=== PATIENT | female | born 1975 | race Caucasian/White ===

== ENCOUNTER 2021-12-19 09:49 | Emergency (ER) | payer MEDICAID, SELFPAY ==
--- NOTE | ~2021-12-19 | CT_ITS ---
EXAMINATION: CT ABDOMEN AND PELVIS WITH CONTRAST CLINICAL INFORMATION: Right lower quadrant abdominal pain and tenderness. COMPARISON: None. TECHNIQUE: Multidetector volumetric images were obtained from the superior aspect of the liver through the pubic symphysis following administration 85 mL of Omnipaque 350 intravenous contrast. Sagittal and coronal reformatted images were obtained on the technologist's workstation. Oral contrast: No This CT examination was performed using dose optimization techniques as appropriate, variously including the following: *Automated exposure control *Adjustment of mA and/or kV according to patient size (this includes techniques or standardized protocols for targeted exams where dose is matched to indication/reason for exam; i.e. extremities or head) *Use of iterative reconstruction technique DLP: 691 mGy-cm FINDINGS: LUNG BASES: The visualized lung bases are unremarkable. LIVER, GALLBLADDER, AND BILIARY TREE: The liver is normal in size, shape, and attenuation. Anterosuperior hepatic hypodensity measuring less than 0.5 cm. No additional hepatic parenchymal lesion. No biliary ductal dilatation is present. The gallbladder is unremarkable with no evidence of radiopaque gallstones, gallbladder wall thickening, or obvious pericholecystic inflammatory changes. PANCREAS: Unremarkable. SPLEEN: Unremarkable. ADRENAL GLANDS: Unremarkable. KIDNEYS AND URETERS: The kidneys are normal in size, shape, and attenuation. No hydronephrosis, hydroureter, or calculi seen. Left midpole 1.0 cm simple cyst. Additional subcentimeter bilateral renal hypodensities, likely representing simple cysts. Findings are not clinically significant and no dedicated follow up imaging is recommended. No renal or ureteral stone. No hydronephrosis or hydroureter. No perinephric stranding. BLADDER: Partially distended and unremarkable. GASTROINTESTINAL TRACT: No bowel wall thickening or inflammatory change. No small or large bowel obstruction. Unremarkable appendix. PERITONEAL CAVITY: Trace simple pelvic free fluid. No intra-abdominal free air. ABDOMINAL WALL: No significant hernia is appreciated. LYMPH NODES: No significant lymphadenopathy. VASCULAR: Unremarkable. PELVIC VISCERA: There is a large, peripherally enhancing cystic structure associated with the right adnexa measuring up to 5.5 x 6.4 x 7.7 cm. Trace right adnexal and pelvic free fluid. Nabothian cysts. Unremarkable left adnexa. OSSEOUS STRUCTURES: Unremarkable. CT/CT abdomen pelvis w IV con IMPRESSION: 1. Peripherally enhancing right adnexal cyst measuring up to 7.7 cm. Trace right adnexal and pelvic free fluid. CIVIL LAWYER ultrasound could help further evaluate if clinically indicated. 2. No bowel wall thickening or inflammatory change. No small or large bowel obstruction. Unremarkable appendix. Fleischner guidelines were followed.
--- NOTE | ~2021-12-19 | US_ITS ---
EXAMINATION: US PELVIS CLINICAL INFORMATION: Severe right lower quadrant pain COMPARISON: CT scan of the abdomen and pelvis earlier today TECHNIQUE: Ultrasound of the pelvis is performed using both transabdominal and transvaginal transducers along with Doppler. Transvaginal imaging is performed due to inadequate visualization transabdominally. FINDINGS: Uterus: The uterus is retroverted and measures 12.8 x 4.2 x 7.0 cm. The double wall endometrial thickness is 0.2 mm. The uterus is smooth in contour and has normal myometrial echogenicity. No visible fibroid. Adnexa: Both ovaries are visualized. There is normal color flow to the adnexa. There is no ovarian torsion. Right ovary measures 2.6 x 2.1 x 2.1 cm. Left ovary measures 3.1 x 2.1 x 2.7 cm. Of note, adjacent and apparently separate from the right ovary is a large complex predominantly cystic adnexal mass measuring 8.5 x 5.1 x 7.1 cm that has multiple thin internal septations. This correlates with the large mass seen on the CT scan earlier today with a thickened enhancing rim. Moderate free fluid is present in the cul-de-sac. US/US pelvic and transvaginal IMPRESSION: This exam confirms that the large right lower quadrant mass seen on the prior CT scan appears to be separate (or at least exophytic) from the right ovary. Recommendations remain the same with INCLUSION SPECIAL EDUCATION TEACHER/surgical consult.
--- NOTE | ~2021-12-19 | US_ITS ---
EXAMINATION: US PELVIS CLINICAL INFORMATION: Severe right lower quadrant pain COMPARISON: CT scan of the abdomen and pelvis earlier today TECHNIQUE: Ultrasound of the pelvis is performed using both transabdominal and transvaginal transducers along with Doppler. Transvaginal imaging is performed due to inadequate visualization transabdominally. FINDINGS: Uterus: The uterus is retroverted and measures 12.8 x 4.2 x 7.0 cm. The double wall endometrial thickness is 0.2 mm. The uterus is smooth in contour and has normal myometrial echogenicity. No visible fibroid. Adnexa: Both ovaries are visualized. There is normal color flow to the adnexa. There is no ovarian torsion. Right ovary measures 2.6 x 2.1 x 2.1 cm. Left ovary measures 3.1 x 2.1 x 2.7 cm. Of note, adjacent and apparently separate from the right ovary is a large complex predominantly cystic adnexal mass measuring 8.5 x 5.1 x 7.1 cm that has multiple thin internal septations. This correlates with the large mass seen on the CT scan earlier today with a thickened enhancing rim. Moderate free fluid is present in the cul-de-sac. US/US pelvic ovarian doppler IMPRESSION: This exam confirms that the large right lower quadrant mass seen on the prior CT scan appears to be separate (or at least exophytic) from the right ovary. Recommendations remain the same with HEALTH COACH/surgical consult.
[2021-12-19 09:54] VITALS: BP 157/93; PULSE 94; RESP 18; TEMP 36.6; O2SAT 98; BMI 30.2
[2021-12-19 11:19] LABS: MANUAL DIFF FLAG NO
[2021-12-19 11:21] LABS: Basophils Absolute Auto 0.1 X10*3/uL (0.0-0.2); Basophils Percent Auto 0.5 % (0-2); Eosinophils Absolute Auto 0.1 X10*3/uL (0.0-0.4); Eosinophils Percent Auto 0.9 % (0-4); Hematocrit 39.2 % (37.0-47.0); Hemoglobin 13.5 g/dl (12.0-16.0); Imm Gran Abs Auto 0.07 X10*3/uL (0.00-0.03); Imm Gran Pct Auto 0.5 % (0.0-0.4); Lymphocytes Absolute Auto 1.6 X10*3/uL (1.2-4.9); Lymphocytes Percent Auto 12.4 % (20-40); Mean Corpuscular HGB Conc 34.4 g/dl (31.0-35.0); Mean Corpuscular Hemoglobin 28.7 pg (27.0-33.0); Mean Corpuscular Volume 83.4 fL (80.0-98.0); Mean Platelet Volume 9.2 fL (9.4-12.3); Monocytes Absolute Auto 0.7 X10*3/uL (0.1-1.2); Monocytes Percent Auto 5.1 % (2-11); Neutrophils Absolute Auto 10.5 x10*3/uL (2.0-8.3); Neutrophils Percent Auto 80.6 % (45-73); Platelet Count 357 X10*3/uL (160-400); Red Cell Distribution Width 11.9 % (11.0-16.0)
[2021-12-19 11:23] LABS: Appearance Urine Cloudy; Color Urine Yellow; Glucose Urine UA Negative (Negative); Leukocyte Esterase Urine Negative (Negative); Nitrite Urine Negative (Negative); PH >= 9.0 (5.0-9.0); Specific Gravity - Urine 1.025 (1.005-1.025); Urine Blood Negative (Negative); Urine Ketones 40 mg/dL (Negative); Urine Protein 100 (2+) mg/dL (Neg-Trace)
[2021-12-19 11:25] LABS: UPreg QC Valid YES; Urine Pregnancy NEGATIVE (NEGATIVE)
[2021-12-19 11:28] LABS: Bacteria Urine None Seen (None Seen); Hyaline Casts Urine 0-2 /LPF (0-2); Squamous Epithelial Cell Urine 0-2 /HPF (0-2); WBC Urine 0-5 /HPF (0-5)
[2021-12-19 11:48] LABS: Anion Gap 16 (12-20); Blood Urea Nitrogen 13 mg/dL (9-16); Calcium 9.2 mg/dL (8.4-10.2); Carbon Dioxide 20 mmol/L (22-29); Chloride 104 mmol/L (96-108); Estimated Glomerular Filt Rate > 60; Glucose Random 143 mg/dL (60-115); Potassium 3.6 mmol/L (3.3-5.1); Sodium 136 mmol/L (135-145)
--- NOTE | 2021-12-19 17:26 | ED_ITS ---
HPI - Female Genitourinary General Chief complaint: Abdominal Pain Stated complaint: lower back pain/side abd pain Time Seen by Provider: 12/19/21 17:26 Source: patient Mode of arrival: ambulatory Limitations: no limitations History of Present Illness HPI Narrative: 45-year-old female presenting with severe 10/10 right lower abdominal pain radiating to her right flank. Patient reports she was awoken from sleep at 04:00 this morning with the pain. Reports nausea and 2 episodes of vomiting this morning. Patient denies eating anything today. Reports being her usual state of health yesterday. Denies fever, cough, shortness of breath, chest pain, diarrhea, BRBPR, burning with urination, blood in urine. Patient has had liposuction of her abdomen, denies any other abdominal surgery. Patient is menopausal. MD elicited complaint: other (Right-sided abdominal pain) Pertinent past history: other Onset (ago): hour(s) Location of symptoms: RLQ and flank (Right) Severity: severe Female Urogenital Radiation: R Flank Severity scale (1-10): 10 Quality of pain: sharp Consistency: constant Exacerbating factors: movement Associated symptoms: loss of appetite, nausea and vomiting Related Data Previous Rx's Medication Instructions Recorded hydrocodone 5 mg-acetaminophen 325 1 tab PO Q6H PRN severe pain 12/19/21 mg tablet (scale score 7-10) #10 tabs ibuprofen 800 mg tablet 800 mg PO Q8H PRN pain #20 tabs 12/19/21 Allergies Allergy/AdvReac Type Severity Reaction Status Date / Time Unable to Assess Allergy Unverified 12/19/21 17:35 Review of Systems Review of Systems: Constitutional: No Fever, No Chills ENT/Mouth: No sore throat, No Rhinorrhea, No Swallowing Difficulty Eyes: No Eye Pain, No Swelling, No Redness Cardiovascular: No Chest Pain, No SOB, No Orthopnea, No Edema Respiratory: No Cough, No Sputum, No Wheezing, No dyspnea Gastrointestinal: + Nausea, + Vomiting, No Diarrhea, + abdominal Pain, No Hematochezia, No Melena Genitourinary: No Dysuria, No Urinary Frequency, No Hematuria Musculoskeletal: No joint pain, No Myalgias Skin: No Skin Lesions, No rash Neuro: No Weakness, No Numbness, No Dizziness, No Headache Psych: No Anxiety/Panic, No Depression Heme/Lymph: No Bruising, No Lymphadenopathy Endocrine: No Polyuria, No Polydipsia PMFSH Social History Social History Patient Tobacco Use Status: Never used Tobacco Use of substances other than those prescribed or required for medical reasons: No Advance Directives: No Advance Directives Information Provided: No Physical Exam Vital Signs: Vital Signs: Last Vital Signs Temp 99.1 F 12/19/21 20:00 Pulse 90 12/19/21 20:00 Resp 16 12/19/21 20:00 BP 135/69 12/19/21 20:00 Pulse Ox 98 12/19/21 20:00 O2 Del Method 12/19/21 20:00 BMI result Body Mass Index 30.2 Appearance: Alert. Oriented X3. No acute distress. Eyes: Pupils equal, round and reactive to light. ENT: Pharynx normal. Neck: Normal inspection. Neck supple. CVS: Normal heart rate and rhythm. Pulses normal. Respiratory: No respiratory distress. Breath sounds normal. Abdomen: Soft with marked RLQ tenderness with guarding, no rebound, no other areas of tenderness. unable to appreciate palpable mass due to pain and inability to tolerate deep palpation. normal BS x4. pelvic deferred. Skin: Skin warm and dry. Normal skin color. Normal skin turgor. No rashes. Extremities: No lower extremity edema. Neuro: Oriented X 3. No motor deficit. No sensory deficit. Course Course Course Narrative: 45-year-old female presenting with severe 10/10 right lower abdominal pain radiating to her right flank. On exam, patient is very uncomfortable holding her right side. Tenderness to palpation in right lower quadrant with guarding. Concern for appendicitis vs ovarian cyst vs ovarian torsion, lower concern for nephrolithiasis, pyelonephritis. CT abdomen pelvis with contrast pending Labs remarkable for mild leukocytosis of 13.0 Reevaluation(s) Reevaluation #1: CT scan showing a 7.7 cm right adnexal cyst. There is trace right adnexal and pelvic free fluid. Will get pelvic ultrasound to rule out or vein torsion. She is much more comfortable after the morphine and Zofran. Patient updated on plan of care. Reevaluation #2: Pelvic ultrasound is showing at 8.5 x 5.1 x 7.1 predominantly cystic adnexal mass with multiple thin internal septations. There is no torsion with normal color flow to the adnexa. Her pain is better controlled after dose of morphine and Toradol. Will plan to send her home with pain control and outpatient follow-up with Dr. Conn or her OBGYN. MDM - Female Genitourinary Lab Data Result diagrams: 12/19/21 11:12 12/19/21 11:12 Labs: Lab Results 12/19/21 12/19/21 12/19/21 Range/Units 11:12 11:12 11:12 WBC 13.0 H (4.8-10.8) X10*3/uL RBC 4.70 (4.20-5.50) X10*6/uL Hgb 13.5 (12.0-16.0) g/dl Hct 39.2 (37.0-47.0) % MCV 83.4 (80.0-98.0) fL MCH 28.7 (27.0-33.0) pg MCHC 34.4 (31.0-35.0) g/dl RDW 11.9 (11.0-16.0) % Plt Count 357 (160-400) X10*3/uL MPV 9.2 L (9.4-12.3) fL Immature Gran % (Auto) 0.5 H (0.0-0.4) % Neut % (Auto) 80.6 H (45-73) % Lymph % (Auto) 12.4 L (20-40) % [place] % (Auto) 5.1 (2-11) % Eos % (Auto) 0.9 (0-4) % Baso % (Auto) 0.5 (0-2) % Lymph # (Auto) 1.6 (1.2-4.9) X10*3/uL [place] # (Auto) 0.7 (0.1-1.2) X10*3/uL Eos # (Auto) 0.1 (0.0-0.4) X10*3/uL Baso # (Auto) 0.1 (0.0-0.2) X10*3/uL Abs Immat Gran (auto) 0.07 H (0.00-0.03) X10*3/uL Absolute Neuts (auto) 10.5 H (2.0-8.3) x10*3/uL Absolute Nucleated RBC 0.000 (0.0-0.012) X10*3/uL Nucleated RBC % (auto) 0.0 (0.0-0.2) /100WBC Sodium 136 (135-145) mmol/L Potassium 3.6 (3.3-5.1) mmol/L Chloride 104 (96-108) mmol/L Carbon Dioxide 20 L (22-29) mmol/L Anion Gap 16 (12-20) BUN 13 (9-16) mg/dL Creatinine 0.64 (0.5-1.4) mg/dL Estim Creat Clear Calc 104.0 Estimated GFR > 60 Random Glucose 143 H (60-115) mg/dL Calcium 9.2 (8.4-10.2) mg/dL Urine Color Yellow Urine Appearance Cloudy Urine pH >= 9.0 (5.0-9.0) Ur Specific [place] 1.025 (1.005-1.025) Urine Protein 100 (2+) H (Neg-Trace) mg/dL Urine Glucose (UA) Negative (Negative) mg/dL Urine Ketones 40 (Negative) mg/dL Urine Blood Negative (Negative) Urine Nitrite Negative (Negative) Ur Leukocyte Esterase Negative (Negative) Urine RBC 3-5 H (0-2) /HPF Urine WBC 0-5 (0-5) /HPF Ur Squamous Epith Cells 0-2 (0-2) /HPF Urine Bacteria None Seen (None Seen) Hyaline Casts 0-2 (0-2) /LPF Urine Test (NEGATIVE) 12/19/21 Range/Units 11:12 WBC (4.8-10.8) X10*3/uL RBC (4.20-5.50) X10*6/uL Hgb (12.0-16.0) g/dl Hct (37.0-47.0) % MCV (80.0-98.0) fL MCH (27.0-33.0) pg MCHC (31.0-35.0) g/dl RDW (11.0-16.0) % Plt Count (160-400) X10*3/uL MPV (9.4-12.3) fL Immature Gran % (Auto) (0.0-0.4) % Neut % (Auto) (45-73) % Lymph % (Auto) (20-40) % [place] % (Auto) (2-11) % Eos % (Auto) (0-4) % Baso % (Auto) (0-2) % Lymph # (Auto) (1.2-4.9) X10*3/uL [place] # (Auto) (0.1-1.2) X10*3/uL Eos # (Auto) (0.0-0.4) X10*3/uL Baso # (Auto) (0.0-0.2) X10*3/uL Abs Immat Gran (auto) (0.00-0.03) X10*3/uL Absolute Neuts (auto) (2.0-8.3) x10*3/uL Absolute Nucleated RBC (0.0-0.012) X10*3/uL Nucleated RBC % (auto) (0.0-0.2) /100WBC Sodium (135-145) mmol/L Potassium (3.3-5.1) mmol/L Chloride (96-108) mmol/L Carbon Dioxide (22-29) mmol/L Anion Gap (12-20) BUN (9-16) mg/dL Creatinine (0.5-1.4) mg/dL Estim Creat Clear Calc Estimated GFR Random Glucose (60-115) mg/dL Calcium (8.4-10.2) mg/dL Urine Color Urine Appearance Urine pH (5.0-9.0) Ur Specific [place] (1.005-1.025) Urine Protein (Neg-Trace) mg/dL Urine Glucose (UA) (Negative) mg/dL Urine Ketones (Negative) mg/dL Urine Blood (Negative) Urine Nitrite (Negative) Ur Leukocyte Esterase (Negative) Urine RBC (0-2) /HPF Urine WBC (0-5) /HPF Ur Squamous Epith Cells (0-2) /HPF Urine Bacteria (None Seen) Hyaline Casts (0-2) /LPF Urine Test NEGATIVE (NEGATIVE) Discharge Plan Discharge Clinical Impression: Adnexal mass Patient Disposition: Home, Self-Care Instructions: Ovarian Cyst (ED), Ovarian Cyst Removal (DC) Additional Instructions: Your CT scan and ultrasound today showed a large 8cm cyst in the area that you are having pain. Recommend following up with the OBGYN listed below. Call his office on Tuesday to arrange an outpatient appointment. Take the prescribed narcotic medication as needed for severe pain. Do not drive after taking this medication. He can make you drowsy. Recommend taking the prescribed ibuprofen every 6-8 hours as needed for [id number] pain. Take with food. If you develop new or worsening symptoms call 911 or come back to the ER for f urther evaluation. Prescriptions: New ibuprofen 800 mg tablet 800 mg PO Q8H PRN (Reason: pain) Qty: 20 0RF hydrocodone-acetaminophen 5-325 mg tablet 1 tab PO Q6H PRN (Reason: severe pain (scale score 7-10)) Qty: 10 0RF Rx Instructions: Partial Fill upon patient request. Referrals: Davonte Conn MD [Physician] -
[2021-12-19] MEDS: iohexoL 350 MG/ML 100 ML INFUS..BTL IV (17:59)
--- NOTE | 2021-12-19 17:59 | PC.NURSE ---
Patient in CT scan. Had to wait to admin narc
[2021-12-19] MEDS: Morphine Sulfate 4 MG/ML CARTRIDGE IVPUSH (18:00)
[2021-12-19] MEDS: ondansetron HCL 4 MG/2 ML VIAL IVPUSH (18:02)
[2021-12-19] MEDS: 0.9 % Sodium Chloride 1,000 ML 999 ML IVCONT (18:02)
[2021-12-19 18:03] VITALS: BP 166/82; PULSE 88; RESP 20; O2SAT 100
[2021-12-19] MEDS: Ketorolac Tromethamine 30 MG/ML VIAL IVPUSH (19:48)
[2021-12-19 20:00] VITALS: BP 135/69; PULSE 90; RESP 16; TEMP 37.3; O2SAT 98
[2021-12-19 21:47] VITALS: BP 133/65; PULSE 83; RESP 16; TEMP 37.2; O2SAT 98
== END 2021-12-19 22:10 | disposition home or self-care (01) ==
PROVIDERS: Emergency Provider Internal Medicine
DX: R19.09 Other intra-abdominal and pelvic swelling, mass and lump (principal); R10.30 Lower abdominal pain, unspecified
CPT/HCPCS: 36415; 74177; 76830; 76856; 80048; 81001; 81025; 85025; 93975; 96361; 96374; 96375; 99284; J1885; J2270; J2405; Q9967

== ENCOUNTER → 2022-04-14 14:32 | Outpatient (REF) | payer MEDICAID, SELFPAY ==
--- NOTE | ~2022-04-14 | XR_ITS ---
EXAMINATION: XR CHEST CLINICAL INFORMATION: Intermittent chest pain COMPARISON: None TECHNIQUE: 2 views of the chest were obtained. FINDINGS: No significant abnormality is noted involving the heart, lungs, mediastinum, bony thorax or soft tissues. XR/XR chest 2V IMPRESSION: Unremarkable examination.
== END ==
LOC: HO.CARD 14:32
PROVIDERS: PCP Student in an Organized Health Care Education/Training Program; Visit Provider Family Medicine
DX: R07.9 Chest pain, unspecified (principal)
CPT/HCPCS: 71046

== ENCOUNTER → 2022-12-28 10:51 | Outpatient (REF) | payer MEDICAID, SELFPAY ==
--- NOTE | 2022-12-28 10:56 | CA_ITS ---
Acquisition Time: 2022-12-28 11:03:56 Total Exercise Time: 00:05:31 Test Indications: CHEST PAIN Medications: Protocol: AUDREY Max HR: 153 BPM 88% of Pred: 172 BPM Max BP: 170/094 mmHG Max Work Load: 7.0 METS Exercise stress test exercise 5 in 31 sec of Audrey protocol achieving 88% MPHR with 8/10 left sided chest pain, with isolated PVC and venticular cuplet, with normotensive response to exercise, resting diastolic high, without EKG changes. Chest pain resolved with rest. Test reviewed with Dr. Quezada. Message to PCP Referred By: Diamond Childress Overread By: Maria Elena Romo
== END ==
LOC: HO.CARD 10:51
PROVIDERS: PCP Student in an Organized Health Care Education/Training Program; Visit Provider Family Medicine
DX: R07.9 Chest pain, unspecified (principal)
CPT/HCPCS: 93017

== ENCOUNTER → 2022-12-28 10:56 | Outpatient (BNV) | payer MEDICAID, SELFPAY | PROVIDERS: PCP Student in an Organized Health Care Education/Training Program; Visit Provider Nurse Practitioner | DX: R07.89 Other chest pain (principal) | CPT/HCPCS: 93016; 93018 ==

== ENCOUNTER 2022-12-29 09:28 | Outpatient (REF) | payer MEDICAID, SELFPAY ==
--- NOTE | ~2022-12-29 | MM_ITS ---
EXAMINATION: MM DIAGNOSTIC DIGITAL BREAST TOMOSYNTHESIS, BILATERAL US BREAST LIMITED, LEFT MAMMOGRAPHY: CLINICAL INFORMATION: 39-year-old female, baseline mammography. Complaining of global left breast pain, most significant in the upper quadrant. Patient states x9 months. COMPARISON: Mammography: None. Baseline exam. TECHNIQUE: Digital breast tomosynthesis is performed in both the craniocaudal and mediolateral oblique views along with computer-aided detection (CAD). Synthesized 2D images are generated from the tomosynthesis. In addition, 3-D spot compression left cc views x2, and left MLO view were also performed. FINDINGS: The breasts are heterogeneously dense, which may obscure small masses (ACR BI-RADS breast composition Category c). A focal asymmetry in the upper outer left breast, posterior one third, dissipates on spot compression views and is consistent with superimposition artifact of normal overlapping fibroglandular tissues. Otherwise, there are no suspicious masses, suspicious grouped calcifications, or areas of architectural distortion in either breast. No mammographic abnormality is evident to explain the patient's global and superior left breast pain. ULTRASOUND: CLINICAL INFORMATION: Global left breast pain, significant upper quadrant x9 months. Baseline mammography. COMPARISON: No prior ultrasound. TECHNIQUE: Targeted sonographic evaluation was performed using a high frequency linear transducer. The left breast was scanned in the 10:00 through the 2:00 axes. Selected archived documentation. FINDINGS: LEFT BREAST: There is a mixture of fatty and fibroglandular tissue. No suspicious mass is seen. There is no pathologic acoustic shadowing. There are no cystic abnormalities. No ultrasonographic correlate to the complaint of left breast pain. MM/MM tomosynthesis diagnostic BI IMPRESSION: There are no findings suspicious for malignancy in either breast. There is no mammographic or sonographic correlate to explain left breast pain, neither globally or superiorly. Recommend clinical management of these symptoms. Otherwise, advise returning to routine mammographic screening. OVERALL ASSESSMENT: Mammography: BI-RADS 2 - Benign Findings Ultrasound: BI-RADS 2 - Benign Findings RECOMMENDATION: 1. Patient should be managed based on the clinical impression. 2. Otherwise, routine annual screening mammography. Results were provided to the patient at time of visit by the technologist. This patient's information was entered into a reminder system with a target due date for their next mammogram.
== END 2022-12-29 09:29 | disposition home or self-care (01) ==
LOC: HO.MAMMO 09:28
PROVIDERS: PCP Family Medicine; Visit Provider Family Medicine
DX: N64.4 Mastodynia (principal)
CPT/HCPCS: 76642; 77062; 77066

== ENCOUNTER → 2022-12-29 09:30 | Outpatient (BNV) | payer MEDICAID, SELFPAY | PROVIDERS: PCP Family Medicine; Visit Provider Radiology Diagnostic Radiology | DX: N64.4 Mastodynia (principal) | CPT/HCPCS: 76642; 77062; 77066 ==

== ENCOUNTER 2023-05-04 16:04 | Outpatient (REF) | payer MEDICAID, SELFPAY ==
[2023-05-04 18:55] LABS: Influenza A PCR NEGATIVE (Negative); Influenza B PCR NEGATIVE (Negative); Resp Syncy Virus RNA Qual PCR NEGATIVE (Negative); SARS COV2 PCR INHOUSE NEGATIVE (Negative)
== END 2023-05-04 16:05 | disposition home or self-care (01) ==
LOC: HO.CHCLNP 16:04
PROVIDERS: Visit Provider Family Medicine
DX: R05.9 Cough, unspecified (principal); Z11.52 Encounter for screening for COVID-19
CPT/HCPCS: 0241U

== ENCOUNTER 2024-04-25 09:00 | Outpatient (REF) | payer MEDICAID, SELFPAY ==
[2024-04-25 14:27] LABS: MANUAL DIFF FLAG NO
[2024-04-25 14:32] LABS: Basophils Percent Auto 0.5 % (0-2); Eosinophils Absolute Auto 0.2 X10*3/uL (0.0-0.4); Eosinophils Percent Auto 2.8 % (0-4); Hemoglobin 13.1 g/dl (12.0-16.0); Imm Gran Abs Auto 0.02 X10*3/uL (0.00-0.03); Imm Gran Pct Auto 0.3 % (0.0-0.4); Lymphocytes Absolute Auto 2.1 X10*3/uL (1.2-4.9); Lymphocytes Percent Auto 26.9 % (20-40); Mean Corpuscular HGB Conc 33.6 g/dl (31.0-35.0); Mean Corpuscular Hemoglobin 29.4 pg (27.0-33.0); Mean Corpuscular Volume 87.6 fL (80.0-98.0); Monocytes Absolute Auto 0.7 X10*3/uL (0.1-1.2); Monocytes Percent Auto 8.3 % (2-11); Neutrophils Absolute Auto 4.9 x10*3/uL (2.0-8.3); Neutrophils Percent Auto 61.2 % (45-73); Platelet Count 293 X10*3/uL (160-400); Red Blood Count 4.45 X10*6/uL (4.20-5.50); Red Cell Distribution Width 12.2 % (11.0-16.0); White Blood Count 7.9 X10*3/uL (4.8-10.8)
[2024-04-25 14:50] LABS: Alanine Aminotransferase 22 U/L (0-31); Albumin Level 3.8 g/dL (3.5-5.0); Alkaline Phosphatase 91 U/L (39-117); Anion Gap 7 (12-20); Aspartate Amino Transferase 28 U/L (5-31); Bilirubin Total 0.4 mg/dL (0.0-1.0); Blood Urea Nitrogen 15 mg/dL (9-16); Calcium 8.4 mg/dL (8.4-10.2); Carbon Dioxide 25 mmol/L (22-29); Chloride 110 mmol/L (96-108); Cholesterol 154 mg/dL (<200); Estimated Glomerular Filt Rate > 60; Glucose Random 102 mg/dL (60-115); HDL Cholesterol 35 mg/dL (>40); Iron 117 mcg/dL (30-160); LDL Cholesterol Calculated 88 mg/dL (<100); Percent Iron Saturation 39 % (15-50); Potassium 3.6 mmol/L (3.3-5.1); Sodium 138 mmol/L (135-145); Total Iron Binding Capacity 297 mcg/dL (228-428); Total Protein 7.1 g/dL (6.5-8.0); Triglycerides 156 mg/dL (<150); Unsaturated Iron Binding 180 ug/dL
[2024-04-25 15:10] LABS: Ferritin 46 ng/mL (10-250); TSH reflex Free T4 3.58 uIU/mL (0.32-4.0)
[2024-04-25 15:14] LABS: Folate 7.2 ng/mL (> or = 4.0); Vitamin B12 469 pg/mL (200-900)
== END 2024-04-25 09:01 | disposition home or self-care (01) ==
LOC: HO.CHCLDS 09:00
PROVIDERS: Visit Provider Family Medicine
DX: I10 Essential (primary) hypertension (principal); L60.9 Nail disorder, unspecified
CPT/HCPCS: 36415; 80053; 80061; 82607; 82728; 82746; 83540; 84443; 85025

== ENCOUNTER 2024-07-05 08:58 | Outpatient (REF) | payer MEDICAID, SELFPAY ==
[2024-07-05 14:19] LABS: Hematocrit 29.7 % (37.0-47.0); Hemoglobin 9.6 g/dl (12.0-16.0); Mean Corpuscular HGB Conc 32.3 g/dl (31.0-35.0); Mean Corpuscular Hemoglobin 26.3 pg (27.0-33.0); Mean Corpuscular Volume 81.4 fL (80.0-98.0); Mean Platelet Volume 10.1 fL (9.4-12.3); Platelet Count 282 X10*3/uL (160-400); Red Blood Count 3.65 X10*6/uL (4.20-5.50); Red Cell Distribution Width 12.8 % (11.0-16.0); White Blood Count 7.1 X10*3/uL (4.8-10.8)
[2024-07-05 14:21] LABS: Anion Gap 10 (12-20); Blood Urea Nitrogen 19 mg/dL (9-16); Carbon Dioxide 23 mmol/L (22-29); Chloride 111 mmol/L (96-108); Estimated Glomerular Filt Rate > 60; Glucose Random 100 mg/dL (60-115); Potassium 3.7 mmol/L (3.3-5.1); Sodium 140 mmol/L (135-145)
[2024-07-05 14:27] LABS: B Type Natriuretic Peptide 55 pg/mL (<100)
== END 2024-07-05 08:59 | disposition home or self-care (01) ==
LOC: HO.CHCLDS 08:58
PROVIDERS: PCP Family Medicine; Visit Provider Internal Medicine Cardiovascular Disease
DX: R07.89 Other chest pain (principal); R06.02 Shortness of breath
CPT/HCPCS: 36415; 80048; 83880; 85027

== ENCOUNTER 2024-12-27 09:56 | Outpatient (REF) | payer MEDICAID, SELFPAY ==
--- OUTSIDE RECORDS SUMMARY | 2024-12-27 09:00 | XMS_ITS | Encounter Summary ---
Author Organization [employer] Address [address] [place] [address] Care Team Providers Care Supply Crib Attendant Name Role Phone Diamond Childress MD Primary Care Provider [phone] Reason for Visit * Reason Comments Dental Pain Encounter Details Date Type Department Care Team ([facility] st Contact Info) Description 12/27/2024 9:00 AM EDT Office Visit [facility] [address] [place] [address] Jesus Childress DDS [address] [place] [address] Social History Tobacco Use Types Packs/Day Years Used Date Smoking Tobacco: Never Passive Smoke Exposure: Never Smokeless Tobacco: Never Alcohol Use Standard Drinks/Week Comments Never 0 (1 standard drink = 0.6 oz pur e alcohol) Depression Answer Date Recorded Patient Health Questionnaire-9 Score 16 04/23/2024 Patient Health Questionnaire-9 Score 16 04/23/2024 Last PHQ-9: Questionnaire Data Not on file 0 04/23/2024 Housing Stability Answer Date Recorded What is your housing situation today? I have rupesh hall 08/29/[address] you li ve. Do you have problems with any of the following? None of the above 08/29/2024 Food Insecurity Answer Date Recorded Within the past 12 months, y ou worried that your food would run out before you got money to buy more: Never True 08/29/2024 Within the past 12 months,th e food you bought just didn't last and you didn't have enough money to get more: Never True Transportation Answer Date Recorded In the past 12 months, has l ack of transportation kept you from medical appts, meetings, work or from getting things needed for daily living? No 08/29/2024 Utilities Answer Date Recorded In the past 12 months, has t he electric, gas, oil or water company threatened to shut off services in your home? Yes 08/29/2024 Depression Answer Date Recorded Patient Health Questionnaire-2 Score 6 04/23/2024 Internet Access Answer Date Recorded Internet Access Q1 Yes 08/29/2024 Internet Access Q2 Not on file 08/29/2024 Comments Unknown Sex and Gender Information Value Date Recorded Sex Assigned at Female 02/08/2022 10:17 AM EDT Legal Sex Female 10:17 AM EDT Gender Identity Female 02/08/2022 10:17 AM EDT Sexual Orientation Straight 02/08/2022 10 :17 AM EDT documented as of this encounter Progress Notes * Jesus Childress DDS - 12/27/2024 9:00 AM EDT Dental procedures in this visit D0140 - LIMITED ORAL EVALUATION - PROBLEM FOCUSED (Completed) Service provider: Jesus Cihldress DDS Billing provider: Arie Patel DMD D0330 - PANORAMIC RADIOGRAPHIC IMAGE (Completed) Service provider: Jesus Childress DDS Billing provider: Arie Patel DMD D0220 - INTRAORAL - PERIAPICAL FIRST RADIOGRAPHIC IMAGE 13 (Completed) Service provider: Jesus Childress DDS Billing provider: Arie Patel DMD D0230 - INTRAORAL - PERIAPICAL EACH ADDITIONAL RADIOGRAPHIC IMAGE 18 (Completed) Service provider: Jesus Childress DDS Billing provider: Arie Patel DMD Patient ID: Kiko Grande is a 49 y.o. female. Time Out: Date: 12/27/2024 Location: [facility] Tooth: UR, LR, UL, and LL Procedure: Exam Verified the above with patient, freezer assistant, and provider. Confirmed via patient's chart, intraorally and by radiographs. Tying Machine Operator: Yes. Language: Surinamese and Upper Sorbian. Tying Machine Operator's Name: Jesus Childress DDS 49 y.o. y/o female presents for limited exam with Dr. Jesus Childress DDS Medical history: Reviewed in EHR Vitals: There were no vitals taken for this visit. Allergies: Reviewed in EHR Medications: Reviewed in EHR Radiographs taken: Yes CHIEF COMPLAINT: I have pain on the right and left sides in the back area Discussion: Subjective: A 49 year old female patient presents with posterior bilateral pain symptoms. She claims that her pain initiated 3 weeks ago. Also, it is not spontaneous. Instead, it occurs upon mastication. She is unable to pinpoint it to a specific tooth. Patient describes non-specific referred pain. Clinical Exam/Tests: Thus, individualized testing of teeth is performed. - Negative Palpation of all teeth. - Painful response upon percussion of tooth #13. - Discomfort is observed upon percussion of tooth #5 - Tooth #13 displays an MOD amalgam filling with a small chip on the mesial aspect. - Towards the end, she remembers that tooth #18 has given her either pain or discomfort symptoms. Radiographic: Deep Composite Filling in proximal contact with the pulp chamber #18 Tooth #13: no periapical radiolucencies or obvious signs of decay Diagnosis/Treatment: Replace #13 MOD judaism NV: Yazdanism #13 Provider: Dr. Jesus Childress DDS Dental Ground Products Director: Brent Jacob Attending: Dr. Patel documented in this encounter Plan of Treatment Upcoming Encounters Date Type Department Care Team (Late st Contact Info) Description 03/22/2025 9:00 AM EST Office Visit [facility] [address] [place] [address] Jesus Childress DDS [address] [place] [address] 03/25/2025 3:00 PM EST Office Visit [facility] [address] [place] [address] Shanice Arevalo Scheduled Orders Name Type Priority Associated Diagnoses Orde r Schedule 13 MOD 13 MOD RESIN-BASED COMPOSITE - 3 SURF, POSTERIOR Dental Routine 1 Occurrences starting 12/27/2024 documented as of this encounter Procedures Procedure Name Priority Date/Time Associated Diagnosis Comments PANORAMIC RADIOGRAPHIC IMAGE Routine 12/27/2024 9:00 AM EDT LIMITED ORAL EVALUATION - PROBLEM FOCUSED Routine 12/27/2024 9:00 AM EDT 13 INTRAORAL - PERIAPICAL FIRST RADIOGRAPHIC IMAGE Routine 12/27/2024 9:00 AM EDT 18 INTRAORAL - PERIAPICAL EACH ADDITIONAL RADIOGRAPHIC IMAGE Routine 12/27/2024 9:00 AM EDT documented in this encounter Visit Diagnoses Not on filedocumented in this encounter Additional Health Concerns Assessment Noted Time PHQ-9 Depression Total Score: 16 025 9:47 AM EST documented as of this encounter Care Teams Supply Crib Attendant Relationship Specialty Start Date End Date Diamond Childress MD [address] [place] [id number] PCP - General Family Medicine 06/07/23 Deion Steve Demand Planning Manager Cardiology 04/16/23 documented as of this encounter
--- OUTSIDE RECORDS SUMMARY | 2024-12-27 11:00 | XMS_ITS | Encounter Summary ---
Author Organization [employer] Address [address] [facility] [address] [place] [address] Care Team Providers Care Stratigrapher Name Role Phone Diamond Childress MD Primary Care Provider [phone] Reason for Referral * Consultation (Routine) - Pending Review Specialty Diagnoses / Procedures Referred By Contac t Referred To Contact Physical Therapy Diagnoses Bilateral chronic knee pain Chronic bilateral low back pain with right-sided sciatica Akash Miller CNP [address] [place] [address] Phone: tel: fax: Referral ID Status Reason Start Date Expiration Date Visits Requested Visits Authorized [id number] Pending Review Specialty Services Required 12/27/2024 12/27/2025 1 1 * Imaging (Routine) - Pending Review Specialty Diagnoses / Procedures Referred By Contac t Referred To Contact Radiology Diagnoses Chronic bilateral low back pain with right-sided sciatica Procedures MR Lumbar Spine w/o Contrast Akash Miller CNP [address] [place] [address] Phone: tel: fax: Referral ID Status Reason Start Date Expiration Date V isits Requested Visits Authorized [id number] Pending Review 12/27/2024 12/27/2025 1 1 Encounter Details Date Type Department Care Team (Latest Contact Info) Description 12/27/2024 11:00 AM EDT Office Visit [facility] [address] [place], [place] [id number] Akash Miller, CUSTOM TAILOR APPRENTICE [address] [facility] [place] [address] Bilateral chronic knee pain (Primary Dx); Chronic bilateral low back pain with right-sided sciatica; Chronic right-sided lumbar radiculopathy Social History Tobacco Use Types Packs/Day Years [...] your housing situation today? I have rupesh hlal 08/29/[address] you li [...] AM EDT documented as of this encounter Last Filed Vital Signs Vital Sign Reading Time Taken Comments Blood Pressure 122/80 12/27/2024 10:57 AM EDT Pulse 80 12/27/2024 10:57 AM EDT Temperature 36.3 C (97.4 F) 12/27/2024 10:57 AM EDT Respiratory Rate 14 12/27/2024 10:57 AM EDT Oxygen Saturation - - Inhaled Oxygen Concentration - - Weight 92.1 kg (203 lb) 12/27/2024 10:57 AM EDT Height 166.4 cm (5' 5.5 ) 12/27/2024 10:57 AM ED T Body Mass Index 33.27 12/27/2024 10:57 AM EDT documented in this encounter Progress Notes * Akash Miller CNP - 12/27/2024 11:00 AM EDT Kiko Grande is a 49 y.o. female who presents for a acute visit. HPI - Bilateral knee pain that is getting worse, despite completion of physical therapy course. - Pain is described as strong and sometimes unbearable, with sensation of inflammation - Pain aggravated by going up and down stairs, moving sideways, walking, getting up, and general movement - Pain radiates up the leg and sometimes to the back -she denies any new onset urinary incontinence, bowel incontinence, saddle anesthesia. She does endorse BLE weakness - Pain was especially severe 2 days ago - Completed physical therapy for knee and leg pain, but symptoms have worsened - Tylenol tried, not effective - Ibuprofen helps but reports she cannot take this medication d/t her other meds - Took a pill from [place] for pain, name unknown - No regular exercise, recently started walking 30 minutes - Expressed fear of losing ability to walk Problem List[1] Allergies[2] Review of Systems Cardiovascular: Negative for leg swelling. Musculoskeletal: Positive for arthralgias and back pain. Negative for gait problem, joint swelling and myalgias. Neurological: Positive for weakness. Negative for seizures, speech difficulty and numbness. Vitals: 12/27/24 1057 BP: 122/80 BP Location: Right arm Patient Position: Sitting BP Cuff Size: Large adult Pulse: 80 Resp: 14 Temp: 97.4 ??F (36.3 ??C) TempSrc: Oral Weight: 203 lb (92.1 kg) Height: 5' 5.5 (1.664 m) Physical Exam Constitutional: Appearance: Normal appearance. She is normal weight. Cardiovascular: Rate and Rhythm: Normal rate and regular rhythm. Pulses: Normal pulses. Heart sounds: Normal heart sounds. No murmur heard. No friction rub. No gallop. Pulmonary: Effort: Pulmonary effort is normal. No respiratory distress. Breath sounds: Normal breath sounds. No wheezing or rales. Musculoskeletal: Lumbar back: No swelling, spasms or tenderness. Normal range of motion. Positive right straight legraise test. Right hip: No tenderness or crepitus. Normal range of motion. Normal strength. Left hip: Normal. No tenderness or crepitus. Normal range of motion. Normal strength. Right knee: Crepitus present. Normal range of motion. Tenderness present over the patellar tendon. No medial joint line or lateral joint line tenderness. No LCL laxity, MCL laxity, ACL laxity or PCL laxity. Left knee: Crepitus present. Normal range of motion. Tenderness present over the patellar tendon. No medial joint line or lateral joint line tenderness. No LCL laxity, MCL laxity, ACL laxity or PCL laxity. Neurological: General: No focal deficit present. Mental Status: She is alert and oriented to person, place, and time. Psychiatric: Mood and Affect: Mood normal. Behavior: Behavior normal. Thought Content: Thought content normal. Judgment: Judgment normal. Problem List Items Addressed This Visit None Visit Diagnoses Bilateral chronic knee pain - Primary Relevant Medications lidocaine (Lidoderm) 5 % patch Other Relevant Orders XR Knee 3 Views Right XR Knee 3 Views Left Knee pain appears to be separate issue from back pain and associated LE weakness, although likely acontributing factor. Sx consistent with patellofemoral syndrome. Pt did not previously complete knee xr ordered by PCP, will reorder today for her to complete. Recommended conservative management for knee pain, including initiation of another course of physical therapy, application of ice and heat, rest, and protection of the knee joint. Will refer to ortho based on results Chronic bilateral low back pain with right-sided sciatica Relevant Medications lidocaine (Lidoderm) 5 % patch Other Relevant Orders MR Lumbar Spine w/o Contrast Chronic right-sided lumbar radiculopathy - Ordered an MRI of the lumbar spine to evaluate for possible nerve involvement contributing to lower back and leg symptoms d/t positive SLR, pain radiation down BLE, and BLE weakness - Prescribed lidocaine patches for localized pain management, pt has tylenol on hand - Will follow up with the patient by phone to discuss imaging results and determine next steps, including referral to a employee placement specialist or general seo specialist based on findings. Current Medications[3] Visit Conducted in: Syriac Translation by: Provided by [employer] Architect Phone Service ID # #ID Syriac [id number] [1] Patient Active Problem List Diagnosis Psoriasis Left-sided chest wall pain Hypertension Breast pain, left Cough NSTEMI (non-ST elevated myocardial infarction) (CMS/HCC) Mixed anxiety and depressive disorder Grief Takotsubo cardiomyopathy Nail abnormalities Dry skin Abnormal uterine bleeding Acute pain of left knee [2] Allergies Allergen Reactions Aspirin Other Stomach pain [3] Current Outpatient Medications: acetaminophen (Tylenol Extra Strength) 500 MG tablet, Take 2 tablets (1,000 mg) by mouth every 8 (eight) hours if needed for moderate pain., Disp: 60 tablet, Rfl: 0 amLODIPine (Norvasc) 5 MG tablet, Take 1 tablet (5 mg) by mouth Once per day., Disp: 90 tablet, Rfl: 1 ammonium lactate (Amlactin) 12 % cream, Apply topically if needed for dry skin., Disp: 385 g, Rfl: 2 clopidogrel (Plavix) 75 MG tablet, Take 75 mg by mouth Once per day., Disp: , Rfl: ferrous gluconate (Fergon) 324 (38 Fe) MG tablet, Take 1 tablet (324 mg) by mouth with breakfast., Disp: 90 tablet, Rfl: 1 isosorbide mononitrate ER (Imdur) 120 MG 24 hr tablet, Take 1 tablet (120 mg) by mouth in the morning. Do not crush or chew. (Patient not taking: Reported on 09/20/2024), Disp: 30 tablet, Rfl: 11 lidocaine (Lidoderm) 5 % patch, Apply 1 patch topically Once per day. Remove & discard patch within 12 hours or as directed by MD., Disp: 30 patch, Rfl: 1 losartan (Cozaar) 100 MG tablet, TAKE ONE TABLET DAILY, Disp: 90 tablet, Rfl: 2 medroxyPROGESTERone (Provera) 10 MG tablet, Take 1 tablet by mouth., Disp: , Rfl: metoprolol succinate XL (Toprol-XL) 200 MG 24 hr tablet, Take 200 mg by mouth Once per day., Disp: , Rfl: rosuvastatin (Crestor) 20 MG tablet, Take 1 tablet (20 mg) by mouth Once per day., Disp: 30 tablet,Rfl: 11 documented in this encounter Plan of Treatment Upcoming Encounters Date Type Department Care Team (Late st Contact Info) Description 03/22/2025 9:00 AM EST Office Visit [facility] [address] [place] [address] Jesus Childress DDS [address] [place] [address] 03/25/2025 3:00 PM EST Office Visit [facility] [address] [place] [address] Shanice Arevalo Scheduled Orders Name Type Priority Associated Diagnoses Orde r Schedule MR Lumbar Spine w/o Contrast Imaging Routine Chronic bilateral low back pain with right-sided sciatica Expected: 12/27/2024, Expires: 12/27/2025 XR Knee 3 Views Right Imaging Routine Bilateral chronic knee pain Expected: 12/27/2024, Expires: 12/27/2025 XR Knee 3 Views Left Imaging Routine Bilateral chronic knee pain Expected: 12/27/2024, Expires: 12/27/2025 Scheduled Referrals Name Type Priority Associated Diagnoses Orde r Schedule Referral to Physical Therapy Outpatient Referral Routine Bilateral chronic knee pain Chronic bilateral low back pain with right-sided sciatica Expected: 12/27/2024 (Approximate), Expires: 12/27/2025 documented as of this encounter Visit Diagnoses Diagnosis Bilateral chronic knee pain- Primary Chronic bilateral low back pain with right-sided sciatica Chronic right-sided lumbar radiculopathy documented in this encounter Additional Health Concerns Assessment Noted Time PHQ-9 Depression Total Score: 16 025 9:47 AM EST documented as of this encounter Care Teams Stratigrapher Relationship Specialty Start Date End Date Diamond Childress MD [address] [place] [address] PCP - General Family Medicine 06/07/23 Deion Steve Childcare Worker Cardiology 04/16/23 documented as of this encounter
--- OUTSIDE RECORDS SUMMARY | 2024-12-27 11:40 | XMS_ITS | Encounter Summary ---
Author Organization [employer] Address [address] [facility] [address] [address] [place] [address] Care Team Providers Care Oracle Database Architect Name Role Phone Diamond Childress MD Primary Care Provider Encounter Details Date Type Department Care Team (Latest Contact Info) Description 12/27/2024 Travel Social History Tobacco Use Types Packs/Day Years [...] AM EDT documented as of this encounter Plan of Treatment Upcoming Encounters Date Type Department Care Team (Late st Contact Info) Description 03/22/2025 9:00 AM EST Office Visit [facility] [address] [place] [address] Jesus Childress DDS [address] [place] [address] 03/25/2025 3:00 PM EST Office Visit [facility] [address] [place] [address] Shanice Arevalo documented as of this encounter Visit Diagnoses Not on filedocumented in this encounter Additional Health Concerns Assessment Noted Time PHQ-9 Depression Total Score: 16 025 9:47 AM EST documented as of this encounter Care Teams Oracle Database Architect Relationship Specialty Start Date End Date Diamond Childress MD [address] [place] [address] PCP - General Family Medicine 06/07/23 Deion Steve Branner Machine Tender Cardiology 04/16/23 documented as of this encounter
--- OUTSIDE RECORDS SUMMARY | 2024-12-27 11:40 | XMS_ITS | Encounter Summary ---
Author Organization [employer] Address [address] [facility] 7[address] [place] [address] Care Team Providers Care Kiln Head House Operator Name Role Phone Eugenia Smallwood MD Primary Care Provider [phone] Diamond Childress MD Primary Care Provider [phone] Encounter Details Date Type Department Care Team ([facility] Contact Info) Description 12/29/2022 Orders Only [facility] MED & PEDS [address] [place], [place] [id number] Eugenia Smallwood MD [address] [place] [address] Social History Tobacco Use Types Packs/Day Years Used Date Smoking Tobacco: Never Passive Smoke Exposure: Never Smokeless Tobacco: Never Alcohol Use Standard Drinks/Week Comments Never 0 (1 standard drink = 0.6 oz pur e alcohol) Depression Answer Date Recorded Patient Health Questionnaire-9 Score 1 04/19/2022 Depression Answer Date Recorded Patient Health Questionnaire-2 Score 1 04/19/2022 Comments Unknown Sex and Gender Information Value Date Recorded Sex Assigned at Female 02/08/2022 10:17 AM EDT Legal Sex Female 10:17 AM EDT Gender Identity Female 02/08/2022 10:17 AM EDT Sexual Orientation Straight 02/08/2022 10 :17 AM EDT documented as of this encounter Plan of Treatment Upcoming Encounters Date Type Department Care Team ([facility] Contact Info) Description 03/22/2025 9:00 AM EST Office Visit [facility] ADULT DENTAL [address] [place], [place] [id number] Jesus Childress DDS [address] [place] [address] 03/25/2025 3:00 PM EST Office Visit [facility] ADULT DENTAL [address] [place] [address] Shanice Arevalo documented as of this encounter Procedures Procedure Name Priority Date/Time Associated Diagnosis Comments BI US BREAST LIMITED LEFT Routine 12/29/2022 10:25 AM EDT BI MAMMOGRAM DIAGNOSTIC TOMOSYNTHESIS BILATERAL Routine 12/29/2022 9:51 AM EDT documented in this encounter Results * BI US Breast Limited Left (12/29/2022 10:25 AM EDT) Anatomical Region Laterality Modality Breast Left Ultrasound 12/29/2022 10:2 5 AM EDT Narrative 12/29/2022 11:22 AM EDT [address] [place] [address] Ultrasound Report Signed Patient: Kiko Grande MR#: [id number] : 1975 Acct:[id number] Age/Sex: 47 / F ADM Date: 12/29/22 Loc: HO.MAMMO Attending Dr: Diamond Childress MD Ordering Physician: Diamond Childress MD Date of Service: 12/29/22 Procedure(s): US breast LT limited mamm only Accession Number(s): [id number] cc: Diamond Childress MD EXAMINATION: MM DIAGNOSTIC DIGITAL BREAST TOMOSYNTHESIS, BILATERAL US BREAST LIMITED, LEFT MAMMOGRAPHY: CLINICAL INFORMATION: 39-year-old female, baseline mammography. Complaining of global left breast pain, most significant in the upper quadrant. Patient states x9 months. COMPARISON: Mammography: None. Baseline exam. TECHNIQUE: Digital breast tomosynthesis is performed in both the craniocaudal and mediolateral oblique views along with computer-aided detection (CAD). Synthesized 2D images are generated from the tomosynthesis. In addition, 3-D spot compression left cc views x2, and left MLO view were also performed. FINDINGS: The breasts are heterogeneously dense, which may obscure small masses (ACR BI-RADS breast composition Category c). A focal asymmetry in the upper outer left breast, posterior one third, dissipates on spot compression views and is consistent with superimposition artifact of normal overlapping fibroglandular tissues. Otherwise, there are no suspicious masses, suspicious grouped calcifications, or areas of architectural distortion in either breast. No mammographic abnormality is evident to explain the patient's global and superior left breast pain. ULTRASOUND: CLINICAL INFORMATION: Global left breast pain, significant upper quadrant x9 months. Baseline mammography. COMPARISON: No prior ultrasound. TECHNIQUE: Targeted sonographic evaluation was performed using a high frequency linear transducer. The left breast was scanned in the 10:00 through the 2:00 axes. Selected archived documentation. FINDINGS: LEFT BREAST: There is a mixture of fatty and fibroglandular tissue. No suspicious mass is seen. There is no pathologic acoustic shadowing. There are no cystic abnormalities. No ultrasonographic correlate to the complaint of left breast pain. US/US breast LT limited mamm only IMPRESSION: There are no findings suspicious for malignancy in either breast. There is no mammographic or sonographic correlate to explain left breast pain, neither globally or superiorly. Recommend clinical management of these symptoms. Otherwise, advise returning to routine mammographic screening. OVERALL ASSESSMENT: Mammography: BI-RADS 2 - Benign Findings Ultrasound: BI-RADS 2 - Benign Findings RECOMMENDATION: 1. Patient should be managed based on the clinical impression. 2. Otherwise, routine annual screening mammography. Results were provided to the patient at time of visit by the technologist. This patient's information was entered into a reminder system with a target due date for their next mammogram. Dictated By: Rory Romo MD Signed By: <Electronically signed by Rory Romo MD in OV> 12/29/22 1118 DD/ 1025 TD/TT: Psychiatric Cns: Procedure Note Donotuseinterpreter, Image - 12/29/[address] [facility]'s [address] [place] [address] Ultrasound Report Signed Patient: Kiko Grande AMR#: [id number] : 1975Acct:[id number] Age/Sex: 47 / FADM Date: 12/29/22 Loc: HO.MAMMO Attending Dr: Diamond Childress MD Ordering Physician: Diamond Childress MD Date of Service: 12/29/22 Procedure(s): US breast LT limited mamm only Accession Number(s): [id number] cc: Diamond Childress MD EXAMINATION: MM DIAGNOSTIC DIGITAL BREAST TOMOSYNTHESIS, BILATERAL US BREAST LIMITED, LEFT MAMMOGRAPHY: CLINICAL INFORMATION: 39-year-old female, baseline mammography. Complaining of global left breast pain, most significant in the upper quadrant. Patient states x9 months. COMPARISON: Mammography: None. Baseline exam. TECHNIQUE: Digital breast tomosynthesis is performed in both the craniocaudal and mediolateral oblique views along with computer-aided detection (CAD). Synthesized 2D images are generated from the tomosynthesis. In addition, 3-D spot compression left cc views x2, and left MLO view were also performed. FINDINGS: The breasts are heterogeneously dense, which may obscure small masses (ACR BI-RADS breast composition Category c). A focal asymmetry in the upper outer left breast, posterior one third, dissipates on spot compression views and is consistent with superimposition artifact of normal overlapping fibroglandular tissues. Otherwise, there are no suspicious masses, suspicious grouped calcifications, or areas of architectural distortion in either breast. No mammographic abnormality is evident to explain the patient's global and superior left breast pain. ULTRASOUND: CLINICAL INFORMATION: Global left breast pain, significant upper quadrant x9 months. Baseline mammography. COMPARISON: No prior ultrasound. TECHNIQUE: Targeted sonographic evaluation was performed using a high frequency linear transducer. The left breast was scanned in the 10:00 through the 2:00 axes. Selected archived documentation. FINDINGS: LEFT BREAST: There is a mixture of fatty and fibroglandular tissue. No suspicious mass is seen. There is no pathologic acoustic shadowing. There are no cystic abnormalities. No ultrasonographic correlate to the complaint of left breast pain. US/US breast LT limited mamm only IMPRESSION: There are no findings suspicious for malignancy in either breast. There is no mammographic or sonographic correlate to explain left breast pain, neither globally or superiorly. Recommend clinical management of these symptoms. Otherwise, advise returning to routine mammographic screening. OVERALL ASSESSMENT: Mammography: BI-RADS 2 - Benign Findings Ultrasound: BI-RADS 2 - Benign Findings RECOMMENDATION: 1. Patient should be managed based on the clinical impression. 2. Otherwise, routine annual screening mammography. Results were provided to the patient at time of visit by the technologist. This patient's information was entered into a reminder system with a target due date for their next mammogram. Dictated By: Rory Romo MD Signed By: <Electronically signed by Rory Romo MD in OV> 12/29/22 1118 DD/ 1025 TD/TT: Psychiatric Cns: us Diamond Childress MD IMG US PROCEDURES Final Resul t * BI Mammogram Diagnostic Tomosynthesis Bilateral (12/29/2022 9:51 AM EDT) Anatomical Region Laterality Modality Breast Bilateral Mammography 12/29/2022 9:51 AM EDT Narrative 12/29/2022 11:22 AM EDT [facility]'s [address] [place] [address] Mammography Report Signed Patient: Kiko Grande MR#: [id number] : 1975 Acct:[id number] Age/Sex: 47 / F ADM Date: 12/29/22 Loc: HO.MAMMO Attending Dr: Diamond Childress MD Ordering Physician: Diamond Childress MD Results: 2Beni gn Findings Date of Service: 12/29/22 Follow Up: 1 Year From [facility] Mammogram Procedure(s): MM tomosynthesis diagnostic BI Accession Number(s): [id number] cc: Diamond Childress MD EXAMINATION: MM DIAGNOSTIC DIGITAL BREAST TOMOSYNTHESIS, BILATERAL US BREAST LIMITED, LEFT MAMMOGRAPHY: CLINICAL INFORMATION: 39-year-old female, baseline mammography. Complaining of global left breast pain, most significant in the upper quadrant. Patient states x9 months. COMPARISON: Mammography: None. Baseline exam. TECHNIQUE: Digital breast tomosynthesis is performed in both the craniocaudal and mediolateral oblique views along with computer-aided detection (CAD). Synthesized 2D images are generated from the tomosynthesis. In addition, 3-D spot compression left cc views x2, and left MLO view were also performed. FINDINGS: The breasts are heterogeneously dense, which may obscure small masses (ACR BI-RADS breast composition Category c). A focal asymmetry in the upper outer left breast, posterior one third, dissipates on spot compression views and is consistent with superimposition artifact of normal overlapping fibroglandular tissues. Otherwise, there are no suspicious masses, suspicious grouped calcifications, or areas of architectural distortion in either breast. No mammographic abnormality is evident to explain the patient's global and superior left breast pain. ULTRASOUND: CLINICAL INFORMATION: Global left breast pain, significant upper quadrant x9 months. Baseline mammography. COMPARISON: No prior ultrasound. TECHNIQUE: Targeted sonographic evaluation was performed using a high frequency linear transducer. The left breast was scanned in the 10:00 through the 2:00 axes. Selected archived documentation. FINDINGS: LEFT BREAST: There is a mixture of fatty and fibroglandular tissue. No suspicious mass is seen. There is no pathologic acoustic shadowing. There are no cystic abnormalities. No ultrasonographic correlate to the complaint of left breast pain. MM/MM tomosynthesis diagnostic BI IMPRESSION: There are no findings suspicious for malignancy in either breast. There is no mammographic or sonographic correlate to explain left breast pain, neither globally or superiorly. Recommend clinical management of these symptoms. Otherwise, advise returning to routine mammographic screening. OVERALL ASSESSMENT: Mammography: BI-RADS 2 - Benign Findings Ultrasound: BI-RADS 2 - Benign Findings RECOMMENDATION: 1. Patient should be managed based on the clinical impression. 2. Otherwise, routine annual screening mammography. Results were provided to the patient at time of visit by the technologist. This patient's information was entered into a reminder system with a target due date for their next mammogram. Dictated By: Rory Romo MD Signed By: <Electronically signed by Rory Romo MD in OV> 12/29/22 1118 DD/ 0951 TD/TT: Psychiatric Cns: Procedure Note Donotuseinterpreter, Image - 12/30/[address] [facility]'s [address] [place], [place] [address] Mammography Report Signed Patient: Kiko Grande AMR#: [id number] : 1975Acct:[id number] Age/Sex: 47 / FADM Date: 12/29/22 Loc: HO.MAMMO Attending Dr: Diamond Childress MD Ordering Physician: Dimaond Childress MDResults: 2Beni gn Findings Date of Service: 12/29/22Follow Up: 1 Year From [facility] ina Mammogram Procedure(s): MM tomosynthesis diagnostic BI Accession Number(s): [id number] cc: Diamond Childress MD EXAMINATION: MM DIAGNOSTIC DIGITAL BREAST TOMOSYNTHESIS, BILATERAL US BREAST LIMITED, LEFT MAMMOGRAPHY: CLINICAL INFORMATION: 39-year-old female, baseline mammography. Complaining of global left breast pain, most significant in the upper quadrant. Patient states x9 months. COMPARISON: Mammography: None. Baseline exam. TECHNIQUE: Digital breast tomosynthesis is performed in both the craniocaudal and mediolateral oblique views along with computer-aided detection (CAD). Synthesized 2D images are generated from the tomosynthesis. In addition, 3-D spot compression left cc views x2, and left MLO view were also performed. FINDINGS: The breasts are heterogeneously dense, which may obscure small masses (ACR BI-RADS breast composition Category c). A focal asymmetry in the upper outer left breast, posterior one third, dissipates on spot compression views and is consistent with superimposition artifact of normal overlapping fibroglandular tissues. Otherwise, there are no suspicious masses, suspicious grouped calcifications, or areas of architectural distortion in either breast. No mammographic abnormality is evident to explain the patient's global and superior left breast pain. ULTRASOUND: CLINICAL INFORMATION: Global left breast pain, significant upper quadrant x9 months. Baseline mammography. COMPARISON: No prior ultrasound. TECHNIQUE: Targeted sonographic evaluation was performed using a high frequency linear transducer. The left breast was scanned in the 10:00 through the 2:00 axes. Selected archived documentation. FINDINGS: LEFT BREAST: There is a mixture of fatty and fibroglandular tissue. No suspicious mass is seen. There is no pathologic acoustic shadowing. There are no cystic abnormalities. No ultrasonographic correlate to the complaint of left breast pain. MM/MM tomosynthesis diagnostic BI IMPRESSION: There are no findings suspicious for malignancy in either breast. There is no mammographic or sonographic correlate to explain left breast pain, neither globally or superiorly. Recommend clinical management of these symptoms. Otherwise, advise returning to routine mammographic screening. OVERALL ASSESSMENT: Mammography: BI-RADS 2 - Benign Findings Ultrasound: BI-RADS 2 - Benign Findings RECOMMENDATION: 1. Patient should be managed based on the clinical impression. 2. Otherwise, routine annual screening mammography. Results were provided to the patient at time of visit by the technologist. This patient's information was entered into a reminder system with a target due date for their next mammogram. Dictated By: Rory Romo MD Signed By: <Electronically signed by Rory Romo MD in OV> 12/29/22 1118 DD/ 0951 TD/TT: Psychiatric Cns: us Diamond Childress MD IMG BI PROCEDURES Edited Resu lt - Final documented in this encounter Visit Diagnoses Not on filedocumented in this encounter Additional Health Concerns Assessment Noted Time PHQ-9 Depression Total Score: 1 04/19/19 23 12:21 PM EST documented as of this encounter Care Teams Kiln Head House Operator Relationship Specialty Start Date End Date Eugenia Smallwood MD [address] [place] [address] PCP - General Family Medicine 04/01/17 06/06/23 Diamond Childress MD [address] [place] [address] PCP - General Family Medicine 06/07/23 Deion Steve Dipping Machine Operator Cardiology 04/16/23 documented as of this encounter
--- OUTSIDE RECORDS SUMMARY | 2024-12-27 11:40 | XMS_ITS | Encounter Summary ---
Author Organization [employer] Address [address] [facility] 7 [place] [address] Care Team Providers Care After School Teacher Name Role Phone Eugenia Smallwood MD Primary Care Provider [phone] Diamond Childress MD Primary Care Provider [phone] Encounter Details Date Type Department Care Team (Latest Contact Info) Description 06/22/2018 Abstract [facility] CONVERSIONS Dental, Provider, DDS Social History Tobacco Use Types Packs/Day Years Used Date Smoking Tobacco: Never Assessed Comments Unknown Sex and Gender Information Value Date Recorded Sex Assigned at Female 02/08/2022 10:17 AM EDT Legal Sex Female 10:17 AM EDT Gender Identity Female 02/08/2022 10:17 AM EDT Sexual Orientation Straight 02/08/2022 10 :17 AM EDT documented as of this encounter Plan of Treatment Upcoming Encounters Date Type Department Care Team ( st Contact Info) Description 03/22/2025 9:00 AM EST Office Visit [facility] ADULT DENTAL [address] [place] [address] Jesus Childress DDS [address] [place] [address] 03/25/2025 3:00 PM EST Office Visit [facility] ADULT DENTAL [address] [place] [address] Shanice Arevalo documented as of this encounter Visit Diagnoses Not on filedocumented in this encounter Care Teams After School Teacher Relationship Specialty Start Date End Date Eugenia Smallwood MD [address] [place] [address] PCP - General Family Medicine 04/01/17 06/06/23 Diamond Childress MD [address] [place] [id number] PCP - General Family Medicine 06/07/23 Deion Steve [employer] T[employer] Builder Cardiology 04/16/23 documented as of this encounter
--- OUTSIDE RECORDS SUMMARY | 2024-12-27 11:40 | XMS_ITS | Clinical Summary ---
Author Organization [employer] Address [address] [facility] [address] [place] [address] Care Team Providers Care Preparation Center Coordinator Name Role Phone Diamond Childress MD Primary Care Provider [phone] Allergies Active Allergy Reactions Criticality Noted Date Comments Aspirin Other Low 04/07/2022 Stomach pain Medications * This document contains information received from the source organization and may not represent a complete record from that organization. isosorbide mononitrate ER (Imdur) 120 MG 24 hr tablet Take 1 tablet (120 mg) by mouth in the morning. Do not crush or chew. 30 tablet 11 4 Active Additional Information Patient not taking.Reported on 09/20/2024 metoprolol succinate XL (Toprol-XL) 200 MG 24 hr tablet Take 200 mg by mouth Once per day. 4 Active clopidogrel (Plavix) 75 MG tablet Take 75 mg by mouth Once per day. 4 Active ammonium lactate (Amlactin) 12 % creamIndications :Dry skin Apply topically if needed for dry skin. 385 g 2 5 Active rosuvastatin (Crestor) 20 MG tablet Take 1 tablet (20 mg) by mouth Once per day. 30 tablet 11 5 04/26/19 26 Active losartan (Cozaar) 100 MG tablet TAKE ONE TABLET DAILY 90 tablet 2 5 Active medroxyPROGESTER one (Provera) 10 MG tablet Take 1 tablet by mouth. 5 Active ferrous gluconate (Fergon) 324 (38 Fe) MG tablet Take 1 tablet (324 mg) by mouth with breakfast. 90 tablet 1 5 Active amLODIPine (Norvasc) 5 MG tablet Take 1 tablet (5 mg) by mouth Once per day. 90 tablet 1 5 Active acetaminophen (Tylenol Extra Strength) 500 MG tablet Take 2 tablets (1,000 mg) by mouth every 8 (eight) hours if needed for moderate pain. 60 tablet 5 Active lidocaine (Lidoderm) 5 % patchIndications :Chronic bilateral low back pain with right-sided sciatica Apply 1 patch topically Once per day. Remove & discard patch within 12 hours or as directed by MD. 30 patch 1 5 Active Active Problems Problem Noted Date Diagnosed Date Abnormal uterine bleeding 09/12/2024 Assessment & Plan (09/12/2024 11:24 AM EDT): Following in [facility], on Provera, per pt will get IUD for treatment of her AUB. Currently anemic, not taking iron supplementation because it increased her appetite, will switch to ferrous gluconate as she needs iron, will check Hgb levels Acute pain of left knee 09/12/2024 Assessment & Plan (09/12/2024 11:24 AM EDT): L knee w/ + crepitus, + apprehension, no joint line pain, consistent with PFS, will refer to PT and Xray. If no improvement consider ortho referral Nail abnormalities 04/23/2024 Assessment & Plan (04/23/2024 9:47 AM EST): Ordering lab work for further evaluation. Dry skin 04/23/2024 Assessment & Plan (04/23/2024 9:48 AM EST): Prescribing Amlactin and Urea lotion for Sx. Takotsubo cardiomyopathy 09/04/2023 Mixed anxiety and depressive disorder 05/31/2023 Assessment & Plan (05/31/2023 2:49 PM EST): During IBH Consult Marlucia presenting with depressed mood, loss of interests/pleasure , trouble concentrating, thoughts of worthlessness or guilt, fatigue/loss of energy, inappropriate guilt , hopelessness, difficulty concentrating and excessive worry/anxiety, difficulty controlling worry, easily fatigued, difficulty concentrating/Mind going blank , and irritability, intense yearning, emotional pain, loneliness and sense that life is meaningless; for a period of 18+ mo, for all symptoms in the context of , family issues, and illness or family illness. Kiko reported having depressive symptoms on and off, however, after the passing of her mother about two years ago the symptoms have worsened. Extreme sadness is affecting her medical health (chest pain, palpitations, etc). Kiko was traveling to her home country ([place] to see her mom who was very sick. After her arrival, her mom unfortunately leading to extreme guilt feelings and despair. Able to manage sxs keeping herself busy. Tried sertraline in the past but stopped treatment due to strong side effects. PLAN: (check all that apply) New/Additional Services needed PCP management On-site non-integrated services Off-site services for Behavioral Health Integration Plan Internal Follow up with I External OP BH therapy referral Patient Self Plan Patient to utilize skills provided in intervention , Patient to reach out to [facility] team as needed, Patient to engage in OP BH therapy , and Patient to follow-up with external team. Referral for OP individual therapy will be placed. Pt will also follow-up w clinician to bridge services. Grief 05/31/2023 Assessment & Plan (05/31/2023 2:49 PM EST): During IBH Consult Kiko presenting with depressed mood, loss of interests/pleasure , trouble concentrating, thoughts of worthlessness or guilt, fatigue/loss of energy, inappropriate guilt , hopelessness, difficulty concentrating and excessive worry/anxiety, difficulty controlling worry, easily fatigued, difficulty concentrating/Mind going blank , and irritability, intense yearning, emotional pain, loneliness and sense that life is meaningless; for a period of 18+ mo, for all symptoms in the context of , family issues, and illness or family illness. Kiko reported having depressive symptoms on and off, however, after the passing of her mother about two years ago the symptoms have worsened. Extreme sadness is affecting her medical health (chest pain, palpitations, etc). Kiko was traveling to her home country [place] to see her mom who was very sick. After her arrival, her mom unfortunately leading to extreme guilt feelings and despair. Able to manage sxs keeping herself busy. Tried sertraline in the past but stopped treatment due to strong side effects. PLAN: (check all that apply) New/Additional Services needed PCP management On-site non-integrated services Off-site services for Behavioral Health Integration Plan Internal Follow up with [facility] External OP BH therapy referral Patient Self Plan Patient to utilize skills provided in intervention , Patient to reach out to [facility] team as needed, Patient to engage in OP BH therapy , and Patient to follow-up with external team. Referral for OP individual therapy will be placed. Pt will also follow-up w clinician to bridge services. During IBH Consult Kiko presenting with depressed mood, loss of interests/pleasure , trouble concentrating, thoughts of worthlessness or guilt, fatigue/loss of energy, inappropriate guilt , hopelessness, difficulty concentrating and excessive worry/anxiety, difficulty controlling worry, easily fatigued, difficulty concentrating/Mind going blank , and irritability, intense yearning, emotional pain, loneliness and sense that life is meaningless; for a period of 18+ mo, for all symptoms in the context of , family issues, and illness or family illness. Kiko reported having depressive symptoms on and off, however, after the passing of her mother about two years ago the symptoms have worsened. Extreme sadness is affecting her medical health (chest pain, palpitations, etc). Kiko was traveling to her home country [place] to see her mom who was very sick. After her arrival, her mom unfortunately leading to extreme guilt feelings and despair. Able to manage sxs keeping herself busy. Tried sertraline in the past but stopped treatment due to strong side effects. PLAN: (check all that apply) New/Additional Services needed PCP management On-site non-integrated services Off-site services for Behavioral Health Integration Plan Internal Follow up with [facility] External OP BH therapy referral Patient Self Plan Patient to utilize skills provided in intervention , Patient to reach out to [facility] team as needed, Patient to engage in OP BH therapy , and Patient to follow-up with external team. Referral for OP individual therapy will be placed. Pt will also follow-up w clinician to bridge services. Cough 05/04/2023 Assessment & Plan (05/04/2023 3:14 PM EST): Patient that presented visit with complaints of a cough will be provided with Robitussin to treat symptom. NSTEMI (non-ST elevated myocardial infarction) 0 05/04/2023 Assessment & Plan (05/05/2023 9:13 AM EST): Patient states already seeing a shoe worker, [facility] on OM2. Stated being on medications and having a follow up. Will keep monitoring. Breast pain, left 12/08/2022 Assessment & Plan (12/08/2022 12:55 PM EDT): Send referral for Mammography Left-sided chest wall pain 04/07/2022 Assessment & Plan (06/07/2023 5:33 PM EST): Patient came to visit complaining of left chest pain that occurs all the time. Will increase patient's nitrate She has an ECHO scheduled next week. Patient came to visit complaining of left chest pain I have increase dose of Imdur and order her an XR of chest pain to check if lungs are clear. She had PNA a month ago. Assessment & Plan (12/08/2022 12:55 PM EDT): Patient presented with complaints of chest pain got an EKG preformed at the time of visit, with normal findings. Will referred to Family Practitioner for further evaluation. Sent for stress test. Assessment & Plan (04/07/2022 5:05 PM EST): Started since the of her mother 2 months ago. Could be related to anxiety but given risk factors need to r/o cardiac origin. Send CXR, stress test and referral to cards. EKG w/o ST segment elevations or depressions. Recommended followup with PCP. Hypertension 04/07/2022 Assessment & Plan (09/12/2024 11:23 AM EDT): Controlled. Cont current regimen JAVIER-I/CCB Followup 3 mo Assessment & Plan (04/23/2024 9:46 AM EST): Ordering lab work for further evaluation. Follow up in 4-5 months. Assessment & Plan (05/10/2023 2:44 PM EST): Not at target, will increase losartan to 100mg (2 x50mg pills) and metoprolol to 150mg, told in case of having chest pain/shortness of breath or any new symptom to visit er, she has follow up with cardiology on Assessment & Plan (05/04/2023 3:15 PM EST): Uncontrolled: was notices that patient presented visit with an elevated blood pressure with readings of 135/89 mmHg. Patient will be provided with medication to regulate blood pressure. Advised to keep monitoring at home, and bring readings upon next office visit. Assessment & Plan (04/07/2022 5:07 PM EST): She was switched to captopril in [place], reports prefers med that is once a day, will discontinue amlodipine (reports flushing and palpitations w/ amlodipine which could be a side effect) and will start lisinopril, schedule followup with PCP for chronic health management of her health conditions Psoriasis 04/01/2017 Resolved Problems Problem Noted Date Diagnosed Date Resolved Date Chronic pain of right knee 04/23/2024 0 09/12/2024 Assessment & Plan (04/23/2024 9:48 AM EST): Ordering XR of right knee for further evaluation. Referral to PT for further treatment. Encounters Date Type Department Care Team Description 12/27/2024 11:00 AM EDT Office Visit [facility] [address] [place] [address] Akash Miller CNP Bilateral chronic knee pain (Primary Dx); Chronic bilateral low back pain with right-sided sciatica; Chronic right-sided lumbar radiculopathy 12/27/2024 9:00 AM EDT Office Visit [facility] [address] [place] [address] Jesus Childress DDS 12/27/2024 Travel from Last 3 Months Immunizations Immunization Administration Dates Next Due Influenza injectable quadrivalent preservative f ree 05/15/2023 Influenza, IIV3, injectable 02/25/2014 Influenza, seasonal, injectable, preservative fr ee 04/23/2024 Pfizer Covid-19 Vaccine 12+ 08/14/2020, Pneumococcal Conjugate PCV 20 06/07/2023 Tdap 06/07/2023 Social History Tobacco Use Types Packs/Day Years Used Date Smoking Tobacco: Never Passive Smoke Exposure: Never Smokeless Tobacco: Never Tobacco Cessation:Counseling Given: Not Answered Alcohol Use Standard Drinks/Week Comments Never 0 (1 standard drink = 0.6 oz pur e alcohol) Depression Answer Date Recorded Patient Health Questionnaire-9 Score 16 04/23/2024 Patient Health Questionnaire-9 Score 16 04/23/2024 Last PHQ-9: Questionnaire Data Not on file 0 04/23/2024 Housing Stability Answer Date Recorded What is your housing situation today? I have [facility] 08/29/[address] you [...] Orientation Straight 02/08/2022 10 :17 AM EDT Last Filed Vital Signs Vital Sign Reading Time Taken Comments Blood Pressure 122/80 12/27/2024 10:57 AM EDT Pulse 80 12/27/2024 10:57 AM EDT Temperature 36.3 C (97.4 F) 12/27/2024 10:57 AM EDT Respiratory Rate 14 12/27/2024 10:57 AM EDT Oxygen Saturation 98% 09/12/2024 10:26 AM EDT Inhaled Oxygen Concentration - - Weight 92.1 kg (203 lb) 12/27/2024 10:57 AM EDT Height 166.4 cm (5' 5.5 ) 12/27/2024 10:57 AM ED T Body Mass Index 33.27 12/27/2024 10:57 AM EDT Plan of Treatment Upcoming Encounters Date Type Department Care Team (Late st Contact Info) Description 03/22/2025 9:00 AM EST Office Visit [facility] [address] [place] [address] Jesus Childress, [place] [address] [place] [address] 03/25/2025 3:00 PM EST Office Visit [facility] [address] [place] [address] Shanice Arevalo Health Maintenance Due Date Last Done Comments CT Colonography 1974 Colonoscopy 1974 Colorectal Cancer Screening 1974 FIT DNA/Cologuard 1974 FIT 1974 FOBT 1975 HIV Screening 1975 Sigmoidoscopy 1974 Disability Screening 1974 Family Planning (PISQ) 1989 Hepatitis C Screening 1992 Hepatitis B Vaccines (1 of 3 - 19+ 3-dose series) 1993 Pap Smear 12/22/1995 Cervical Cancer Screening 2004 HPV/Cotest 2004 Dental Oral Exam 08/31/2024 03/02/2024, 01/2019, 06/19/2018, Additional history exists Depression Monitoring 10/21/2024 04/23/2024, 025 COVID-19 Vaccine ( season) 2024 08/14/2020, 07/24/2020 Influenza Vaccine (#1) 2024 , 05/15/2023, 02/25/2014 Zoster Vaccines (1 of 2) 2024 Mammogram 12/29/2024 12/29/2022, 12/29/2022 Dental X-Ray: Bitewings 03/03/2025 03/02/20 24, 03/20/2019, 11/02/2017, Additional history exists Dental Prophylaxis 03/23/2025 09/20/2024, 1 05/22/2023, 02/15/2019, Additional history exists Alcohol/Substance Use Screening 04/23/2025 04/23/2024 SDOH Screening 08/29/2025 08/29/2024 Tobacco Screening 12/27/2025 12/27/2024 Dental X-Ray: Full Mouth 12/29/2027 025, 03/02/2024, 11/01/2016 Lipid Panel 04/25/2029 04/25/2024, 08/14/2021 DTaP/Tdap/Td Vaccines (2 - Td or Tdap) 06/07/2033 06/07/2023 RSV Patients and Patients Aged 60 years or older (1 - 1-dose 75+ series) 2049 Pneumococcal Vaccine: 50+ Years Completed 06/07/2023 HIB Vaccines Aged Out No longer eligi ble based on patient's age to complete this topic HPV Vaccines Aged Out No longer eligi ble based on patient's age to complete this topic Hepatitis A Vaccines Aged Out No long er eligible based on patient's age to complete this topic IPV Vaccines Aged Out No longer eligi ble based on patient's age to complete this topic Meningococcal B Vaccine Aged Out No l onger eligible based on patient's age to complete this topic Meningococcal Vaccine Aged Out No karie ama eligible based on patient's age to complete this topic RSV under 20 months Aged Out No longe r eligible based on patient's age to complete this topic Rotavirus Vaccines Aged Out No longer eligible based on patient's age to complete this topic Procedures Procedure Name Priority Date/Time Associated Diagnosis Comments 18 INTRAORAL - PERIAPICAL EACH ADDITIONAL RADIOGRAPHIC IMAGE Routine 12/27/2024 9:00 AM EDT 13 INTRAORAL - PERIAPICAL FIRST RADIOGRAPHIC IMAGE Routine 12/27/2024 9:00 AM EDT PANORAMIC RADIOGRAPHIC IMAGE Routine 12/27/2024 9:00 AM EDT LIMITED ORAL EVALUATION - PROBLEM FOCUSED Routine 12/27/2024 9:00 AM EDT PROPHYLAXIS - ADULT Routine 09/20/2024 3 :00 PM EDT LIPID PANEL, STANDARD Routine 04/25/2024 9:01 AM EST Primary hypertension INTRAORAL - COMPLETE SERIES OF RADIOGRAPHIC IMAGES Routine 03/02/2024 2:00 PM EST PERIODIC ORAL EVALUATION - ESTABLISHED PATIENT Routine 03/02/2024 2:00 PM EST BI MAMMOGRAM DIAGNOSTIC TOMOSYNTHESIS BILATERAL Routine 12/29/2022 9:51 AM EDT from Last 3 Months or Most Recently Relevant to Health Maintenance Results * (ABNORMAL) Lipid Panel, Standard (04/25/2024 9:01 AM EST) Triglycerides 156(H) <150 mg/dL [facility] Comment:Desirable Triglyceri de: less than 150 mg/dLBorderline High Triglyceride 150-199 mg/dLHigh Triglyceride: 200-499 mg/dLVery High Triglyceride: greater than or equal to 5OO mg/dL Cholesterol 154 <200 mg/dL [facility] Comment:Desirable Cholestero l: less than 200 mg/dLBorderline High Cholesterol: 200-239 mg/dLHigh Cholesterol: greater than 239 mg/dL LDL Cholesterol Calculated 88 <100 mg/dL [facility] Comment:Desirable LDL: less than 100 mg/dLNear Optimal/Above Optimal LDL: 110- 129 mg/dLBorderline High LDL: 130-159 mg/dLHigh LDL: 160-189 mg/dLVery High LDL: greater than or equal to 190 mg/dL HDL Cholesterol 35(L) >40 mg/dL [facility] Comment:Desirable HDL: great er than 40 mg/dL Note: This HDL assay may give artificially low results in patients with liver disease. Blood Venous blood specimen / Unknown 04/25/2024 9:01 AM EST 04/25/2024 2:20 PM EST us Diamond Childress MD LAB BLOOD ORDERABLES Final Re sult [facility] [address] [place] [address] [phone] * BI Mammogram Diagnostic Tomosynthesis Bilateral (12/29/2022 9:51 AM EDT) Anatomical Region Laterality Modality Breast Bilateral Mammography 12/29/2022 9:51 AM EDT Narrative 12/29/2022 11:22 AM EDT [facility] [address] [place] [address] Mammography Report Signed Patient: Kiko Grande MR#: [id number] : 1975 Acct:[id number] Age/Sex: 47 / F ADM Date: 12/29/22 Loc: HO.MAMMO Attending Dr: Diamond Childress MD Ordering Physician: Diamond Childress MD Results: 2Beni gn Findings Date of Service: 12/29/22 Follow Up: 1 Year From Orig ina Mammogram Procedure(s): MM tomosynthesis diagnostic BI Accession Number(s): [id number] cc: Diamond Childress MD EXAMINATION: MM DIAGNOSTIC [...] in OV> 12/29/22 1118 DD/ 0951 TD/TT: System Controller: Procedure Note Donotuseinterpreter, Image - 12/30/2022 Aurelia [facility] [address] [place] [address] Mammography Report Signed Patient: Kiko Grande AMR#: [id number] : 1975Acct:[id number] Age/Sex: 47 / FADM Date: 12/29/22 Loc: HO.MAMMO Attending Dr: Diamond Childress MD Ordering Physician: Diamond Childress MDResults: 2Beni gn Findings Date of Service: 12/29/22Follow Up: 1 Year From Orig inal Mammogram Procedure(s): MM tomosynthesis diagnostic BI Accession Number(s): [id number] cc: Diamond Childress MD EXAMINATION: MM DIAGNOSTIC [...] in OV> 12/29/22 1118 DD/ 0951 TD/TT: System Controller: Diamond Childress MD IMG BI PROCEDURES Edited Resu lt - Final from Last 3 Months or Most Recently Relevant to Health Maintenance Insurance C[facility] MEDICAID STAND ADULT Care Teams Preparation Center Coordinator Relationship Specialty Start Date End Date Diamond Childress MD [address] [place] [address] PCP - General Family Medicine 06/07/23 Deion Steve Family Practitioner Cardiology 04/16/23
--- OUTSIDE RECORDS SUMMARY | 2024-12-27 11:40 | XMS_ITS | Encounter Summary ---
Author Organization [employer] Address [address] [facility] [address] [place] [address] Care Team Providers Care [employer] Officer Name Role Phone Diamond Childress MD Primary Care Provider [phone] Encounter Details Date Type Department Care Team ([facility] Contact Info) Description 09/11/2024 Orders Only [facility] [address] [place] [address] Provider, MD Erika Social History Tobacco Use Types Packs/Day Years [...] the past 12 months, has t he [employer], gas, oil or water [facility] threatened to shut off services in your [...] Description 03/22/2025 9:00 AM EST Office Visit [facility] [address] [place] [address] Jesus Childress DDS [address] [place] [address] 03/25/2025 3:00 PM EST Office Visit [facility] [address] [place] [address] Shanice Arevalo documented as of this encounter Procedures Procedure Name Priority Date/Time Associated Diagnosis Comments TRANSESOPHAGEAL ECHO (NIKKI) Routine 09/07 2:18 PM EDT documented in this encounter Results * Transesophageal echo (NIKKI) (09/07/2024 2:18 PM EDT) Historical Provider CV ECHO PROCEDURES Final Result documented in this encounter Visit Diagnoses Not on filedocumented in this encounter Additional Health Concerns Assessment Noted Time PHQ-9 Depression Total Score: 16 025 9:47 AM EST documented as of this encounter Care Teams [employer] Relationship Specialty Start Date End Date Diamond Childress MD [address] [place] [address] PCP - General Family Medicine 06/07/23 Deion Steve Crusher Supervisor Cardiology 04/16/23 documented as of this encounter
[2024-12-27 14:36] LABS: MANUAL DIFF FLAG NO
[2024-12-27 14:39] LABS: Hematocrit 40.3 % (37.0-47.0); Hemoglobin 13.1 g/dl (12.0-16.0); Imm Gran Abs Auto 0.01 X10*3/uL (0.00-0.03); Imm Gran Pct Auto 0.2 % (0.0-0.4); Lymphocytes Absolute Auto 1.8 X10*3/uL (1.2-4.9); Mean Corpuscular HGB Conc 32.5 g/dl (31.0-35.0); Mean Corpuscular Hemoglobin 27.0 pg (27.0-33.0); Mean Corpuscular Volume 83.1 fL (80.0-98.0); NRBC Abs Auto 0.000 X10*3/uL (0.0-0.012); NRBC Pct Auto 0.0 /100WBC (0.0-0.2); Platelet Count 254 X10*3/uL (160-400); Red Blood Count 4.85 X10*6/uL (4.20-5.50); White Blood Count 5.6 X10*3/uL (4.8-10.8)
[2024-12-27 15:14] LABS: Cholesterol 101 mg/dL (<200); HDL Cholesterol 31 mg/dL (>40); Iron 125 mcg/dL (30-160); Percent Iron Saturation 39 % (15-50); Total Iron Binding Capacity 324 mcg/dL (228-428); Triglycerides 80 mg/dL (<150); Unsaturated Iron Binding 199 ug/dL
[2024-12-27 15:16] LABS: Ferritin 49 ng/mL (10-250)
[2024-12-28 08:44] LABS: HBS Num1 0.21 mIU/mL (0-7.99); HBc Num1 0.17 S/CO (0.00-0.79); HIV Num 1 0.05 S/CO (0.00-0.99); ~HepC Num1 0.13 S/CO (0.00-0.79); ~Hepatitis B Surface Antibody NONREACTIVE (Nonreactive); ~Hepatitis C Antibody Nonreactive (Nonreactive)
== END 2024-12-27 09:57 | disposition home or self-care (01) ==
LOC: HO.CHCLDS 09:56
PROVIDERS: Visit Provider Family Medicine
DX: Z13.89 Encounter for screening for other disorder (principal); E78.5 Hyperlipidemia, unspecified; D64.9 Anemia, unspecified; Z11.59 Encounter for screening for other viral diseases; Z11.4 Encounter for screening for human immunodeficiency virus [HIV]
CPT/HCPCS: 36415; 80061; 82728; 83540; 85025; 86704; 86706; 86803; 87389